=== PATIENT | female | born 1975 | race Caucasian/White ===

== ENCOUNTER → 2021-12-23 | Outpatient (CLI) | payer OTHER, SELFPAY ==
[2021-12-23 15:49] LABS: Absolute Lymphocyte Count 1.02 X10^3/uL (0.83-4.51); Absolute Neutrophil Count 3.6 X10^3/uL (2.0-7.7); Basophil# 0.04 X10^3/uL; Basophil% 0.7 % (0-1); Eosinophil# 0.09 X10^3/uL; Eosinophils% 1.7 % (0-5); Hemoglobin 10.6 g/dL (12.0-15.0); Lymphocyte # 1.02 X10^3/ul (0.83-4.51); Mean Corp Hgb Conc 31.2 g/dL (32-36); Mean Corpuscular Hgb 26.7 pg (27.0-32.0); Mean Corpuscular Volume 85.6 fL (81-99); Mean Platelet Vol. 10.3 fl (6.2-12.0); Monocyte# 0.57 X10^3/uL; Monocyte% 10.6 % (0-10); NRBC Flagged by Analyzer 0 % (0-5); Neutrophil # 3.62 X10^3/uL (2.7-7.7); Neutrophil % 67.6 % (47-70); Platelet Count 395 K/mm3 (150-450); RBC Distribution Width CV 14.9 % (11.6-14.6); Red Blood Count 3.97 M/mm3 (4.2-5.4); White Blood Count 5.4 K/mm3 (4.4-11.0)
[2021-12-26 16:19] LABS: HPV APTIMA, High Risk Negative (Negative)
== END | disposition home or self-care (01) ==
PROVIDERS: Referring Provider Obstetrics & Gynecology; Visit Provider Obstetrics & Gynecology
DX: Z12.4 Encounter for screening for malignant neoplasm of cervix (principal)
CPT/HCPCS: 36415; 84443; 85025; 87624; 88175; G0145

== ENCOUNTER → 2021-12-26 | Outpatient (CLI) | payer OTHER, SELFPAY ==
[2021-12-26 09:20] LABS: Ferritin 6 ng/mL (8-252); Iron 34 ug/dL (50-170); Iron Binding Capacity,Total 467 ug/dL (250-450); PERCENT IRON SATURATION 7.3 % (15.0-55.0)
== END | disposition home or self-care (01) ==
LOC: PAVLAB 08:17
PROVIDERS: Referring Provider Obstetrics & Gynecology; Visit Provider Obstetrics & Gynecology
DX: D64.9 Anemia, unspecified (principal); N93.9 Abnormal uterine and vaginal bleeding, unspecified; D25.9 Leiomyoma of uterus, unspecified
CPT/HCPCS: 36415; 82728; 83540; 83550

== ENCOUNTER → 2021-12-31 | Outpatient (CLI) | payer OTHER, SELFPAY ==
--- NOTE | 2021-12-31 12:11 | US_ITS ---
INDICATION: abnormal uterine bleeding EXAMINATION: Ultrasound US Pelvis Non OB Complete With Transvaginal Imaging TECHNIQUE: Transabdominal and transvaginal pelvic ultrasound was performed. Grayscale, spectral waveform, and color flow Doppler evaluation of the adnexa. COMPARISON: None. FINDINGS: UTERUS: Anteverted uterus demonstrates unremarkable echogenicity except for a focal ill-defined hypoechoic area with scattered areas of hyperechoic echogenicity visualized in the posterior aspect of the fundus indenting on the endometrium, this area measures 2.8 x 2.9 x 1.9 cm most likely representing a uterine fibroid. The endometrial stripe is prominent in size measuring 1.1 cm. No evidence of endometrial masses or cysts. No evidence of endometrial fluid is visualized. The uterus measures 10.7 x 6.3 x 5.7 cm. RIGHT OVARY: The right ovary demonstrates unremarkable echogenicity and unremarkable vascularity. A hyperechoic cyst is visualized within the right ovary measuring 1.8 x 1.4 x 1.5 cm, no significant vascularity visualized, no evidence of internal septations visualized findings suggestive of a simple unilocular physiologic cyst. The right ovary measures 3.2 x 3.3 x 2.7 cm. LEFT OVARY: The left ovary demonstrates unremarkable echogenicity and unremarkable vascularity. A hypoechoic cyst is visualized within the left ovary that demonstrates subtle scattered areas of heterogeneous echogenicity within it measuring 4.3 x 4.5 x 3.1 cm, no significant vascularity visualized, no evidence of internal septations visualized findings suggestive of a hemorrhagic cyst or a chocolate cyst. The left ovary measures 5.6 x 3.6 x 5.5 cm. FREE FLUID: None. US/Transvaginal Non- IMPRESSION: 2.9 cm posterior fundal myometrial fibroid visualized in the uterus. 4.5 cm cyst visualized in the left ovary suggestive of a hemorrhagic cyst or atypical or cyst. 1.8 cm unilocular physiologic cyst visualized in the right ovary. Electronically Signed: Issa Matos MD at 16:01 EDT ,
--- NOTE | 2021-12-31 12:11 | US_ITS ---
INDICATION: abnormal uterine bleeding EXAMINATION: Ultrasound US Pelvis Non OB Complete With Transvaginal Imaging TECHNIQUE: Transabdominal and transvaginal pelvic ultrasound was performed. Grayscale, spectral waveform, and color flow Doppler evaluation of the adnexa. COMPARISON: None. FINDINGS: UTERUS: Anteverted uterus demonstrates unremarkable echogenicity except for a focal ill-defined hypoechoic area with scattered areas of hyperechoic echogenicity visualized in the posterior aspect of the fundus indenting on the endometrium, this area measures 2.8 x 2.9 x 1.9 cm most likely representing a uterine fibroid. The endometrial stripe is prominent in size measuring 1.1 cm. No evidence of endometrial masses or cysts. No evidence of endometrial fluid is visualized. The uterus measures 10.7 x 6.3 x 5.7 cm. RIGHT OVARY: The right ovary demonstrates unremarkable echogenicity and unremarkable vascularity. A hyperechoic cyst is visualized within the right ovary measuring 1.8 x 1.4 x 1.5 cm, no significant vascularity visualized, no evidence of internal septations visualized findings suggestive of a simple unilocular physiologic cyst. The right ovary measures 3.2 x 3.3 x 2.7 cm. LEFT OVARY: The left ovary demonstrates unremarkable echogenicity and unremarkable vascularity. A hypoechoic cyst is visualized within the left ovary that demonstrates subtle scattered areas of heterogeneous echogenicity within it measuring 4.3 x 4.5 x 3.1 cm, no significant vascularity visualized, no evidence of internal septations visualized findings suggestive of a hemorrhagic cyst or a chocolate cyst. The left ovary measures 5.6 x 3.6 x 5.5 cm. FREE FLUID: None. US/Pelvic (Non ) IMPRESSION: 2.9 cm posterior fundal myometrial fibroid visualized in the uterus. 4.5 cm cyst visualized in the left ovary suggestive of a hemorrhagic cyst or atypical or cyst. 1.8 cm unilocular physiologic cyst visualized in the right ovary. Electronically Signed: Issa Matos MD at 16:01 EDT ,
== END | disposition home or self-care (01) ==
LOC: OPUS 12:09
PROVIDERS: Visit Provider Obstetrics & Gynecology
DX: N93.9 Abnormal uterine and vaginal bleeding, unspecified (principal); D25.9 Leiomyoma of uterus, unspecified; N83.201 Unspecified ovarian cyst, right side; N83.202 Unspecified ovarian cyst, left side
CPT/HCPCS: 76830; 76856; 93976

== ENCOUNTER 2022-01-13 07:07 | Day surgery (SDC) | payer OTHER, SELFPAY ==
--- NOTE | 2022-01-12 16:53 | HP.PCM_ITS ---
History and Physical MR#: [id number] Acct: [id number] Name:? JERRICA COHEN Rep #: [id number] : 1975 ? ? Provider: Dr. Janessa Zapata MD Age/Sex:? 46/F ? ? [place] [facility] [place]: Signed Intake Vital Signs ? 01/08/2213:27 01/08/2213:28 Height 5 ft 2.5 in 5 ft 2.5 in Weight: 154 lb ? BMI 27.7 ? BP 106/64 ? Intake Visit Reasons:?D&C symphion poss. 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 Anemia Restless legs Wears glasses Surgical History? History of appendectomy Hx of tonsillectomy Family History? Father Colon cancerGrandmother Lung cancerGrandmother Pancreatic cancer Social History? Smoking Status:? Never smoker substance use type:? does not use caffeine:? Yes seatbelt use:? always do you feel safe at home:? Yes additional social history:? [employer] Patient works at [employer] D&C symphion poss. ablation Details: JERRICA COHEN is a 46 year old who presents for preop for surgery for AUB due to submucosal fibroid. posterior aspect of the fundus indenting on the endometrium, this area measures 2.8 x 2.9 x 1.9 cm most likely representing a uterine fibroid. Female Reproductive History Menopausal Symptoms: No hot flashes, No night sweats, No difficulty concentrating and No change in libido Pregancy History ? ? ? 3 ? Elective abortions ? Hx Para ? ? ? 2 ? Spontaneous abortions ? ? ? 1 Hx # Term Pregnancies ? Ectopic pregnancies ? Hx # Pregnancies ? Multiple births ? # of living children ? ? ? 2 Past Pregnancies Del. Date Name GA/Weeks Outcome Route Bth Weight Infant Gen Labor Lgth Anesthesia Del Locatn Provider FOB Unknown 2000 Ciera ? live - full term ? Unknown 2003 Jack ? live - full term ? ROS Const Constitutional: Reports as per HPI; Denies fatigue, increased appetite, poor appetite, night sweats, weight gain or weight loss Cardio Card: Denies chest pain Resp Resp: Denies cough or dyspnea GI GI: Reports as per HPI; Denies abdominal pain, bloating, constipation, nausea or vomiting : Reports as per HPI and other; Denies difficulty voiding, dysuria, hematuria, hot flashes, nipple discharge, pelvic pain, prolapse symptoms, urinary frequency, urinary incontinence, urinary urgency, vaginal discharge, vaginal dryness, vaginal odor or vaginal pruritus Skin Skin/Breast: Denies changing lesions, breast mass, breast pain, breast skin changes or nipple discharge Psych Psych: Denies anxiety, change in libido, depression or difficulty concentrating Exam Const General: cooperative, healthy appearing, comfortable, no acute distress, well developed and well groomed [facility] Head: normal to inspection and normocephalic Ears: hearing grossly normal bilaterally and external ears normal Nose: external nose normal Face and sinus: normal facial exam Neck Neck: normal visual inspection, full ROM and no lymphadenopathy Thyroid: thyroid normal Chest Chest palpation & inspection: normal inspection of the chest Breast inspection: normal inspection of the breasts and normal inspection of the axillae Breast palpation: normal palpation of the breasts, normal palpation of the axillae and no axillary lymphadenopathy Resp Effort & Inspection: normal respiratory effort GI Inspection: normal to inspection and non-distended Palpation: soft, no hepatosplenomegaly and no guarding General: bladder normal to palpation External Female Exam: normal external appearance, normal appearance of the urethra and no lesions Urethra: normal appearance of the urethra and normal palpation Speculum Exam - Vagina: normal appearance of the vagina and normal vaginal discharge Speculum Exam - Cervix: normal appearance of the cervix, no cervical discharge, no lesions and nontender Bimanual Exam- Vagina & Uterus: normal bimanual exam, uterine size normal, bladder normal to palpation, No tender, uterine mobility normal, consistency normal, non-tender and no cervical motion tenderness Bimanual Exam- Adnexa, other: normal adnexae, no masses and non-tender Skin General: no rashes or lesions noted Neuro General: patient alert, moves all extremities and no focal motor deficits Extrem General: normal to inspection and no pedal edema Psych Appearance: grossly normal Mental Status: mental status grossly normal Affect: normal affect Speech and Movement: speech and movement normal Attitude: cooperative Coding Level of Care Code No Charge Diagnoses Abnormal uterine bleeding due to leiomyoma of uterus? N93.9; D25.9 Mild anemia? D64.9 Iron deficiency anemia? D50.9 Ovarian cyst? N83.209 Assessment and Plan Assessment and Plan (1) Abnormal uterine bleeding due to leiomyoma of uterus: ?Status:?Acute ?Comment: d and c hysteoroscopy symphion or sidney ablation.? labs and fu us ordered (2) Mild anemia: ?Status:?Acute ?Comment: OTC supplement (3) Iron deficiency anemia: ?Status:?Acute ?Comment: recommend Fe supplement 1 daily. (4) Ovarian cyst: ?Status:?Acute ?Comment: 4 cm likely hemorrhagic Plan After discussing the patient's diagnosis and treatment plan options, patient wishes to proceed with surgical management.? I have discussed with the patient the risks, benefits, and alternatives of the procedure which include but are not limited to risks of anesthesia, bleeding, infection, possible damage to bowel, bladder, or surrounding vasculature which could lead to additional surgery to evaluate any complications.? Patient agrees to procedure and wishes to proceed.? ACOG/uptodate references given for additional information regarding procedure.? UPDATE- I have seen the patient and performed any clinically relevant updates to the history and physical exam. Janessa Zapata MD
[2022-01-13] VITALS (7 sets, daily range): BP systolic 92–117; BP diastolic 58–74; PULSE 58–75; RESP 16; TEMP 35.9–36.8; O2SAT 99–100; BMI 27.8
[2022-01-13] MEDS: Lidocaine 1% (5 ml sdv) 5 ML Vial (07:55)
[2022-01-13] MEDS: Lactated Ringers 1,000 ML 15 ML IV (08:05)
[2022-01-13 08:09] LABS: Absolute Lymphocyte Count 1.01 X10^3/uL (0.83-4.51); Absolute Neutrophil Count 3.1 X10^3/uL (2.0-7.7); Basophil# 0.02 X10^3/uL; Basophil% 0.4 % (0-1); Eosinophil# 0.13 X10^3/uL; Eosinophils% 2.8 % (0-5); Hemoglobin 11.3 g/dL (12.0-15.0); Lymphocyte # 1.01 X10^3/ul (0.83-4.51); Lymphocyte % 21.9 % (19-41); Mean Corp Hgb Conc 31.4 g/dL (32-36); Mean Corpuscular Hgb 27.2 pg (27.0-32.0); Mean Corpuscular Volume 86.7 fL (81-99); Mean Platelet Vol. 10.3 fl (6.2-12.0); Monocyte# 0.35 X10^3/uL; Monocyte% 7.6 % (0-10); NRBC Flagged by Analyzer 0 % (0-5); Neutrophil % 67.1 % (47-70); Platelet Count 369 K/mm3 (150-450); RBC Distribution Width CV 15.5 % (11.6-14.6); RBC Distribution Width SD 48.5 fl (35.1-43.9); Red Blood Count 4.15 M/mm3 (4.2-5.4); White Blood Count 4.6 K/mm3 (4.4-11.0)
[2022-01-13 08:13] LABS: Internal QC Validated? YES +Cl - CLEAR BKGD; Pregnancy, Urine Negative Negative
--- NOTE | 2022-01-13 08:30 | EMB_PTH ---
PATIENT: JERRICA COHEN LOC: [facility] [place] U#:[id number] AGE/SX: 46/F ROOM: RE01/13/[address]: Dr. Janessa Zapata MD : 1975 BED: DIS: 01/13/2022 SPEC #: [id number] RECD: 01/13/22 10:08 STATUS: GABE JAVIER #: [id number] AKILAH: 01/13/22 08:[address]: Janessa Zapata DEPT: SURGICAL PATHOLOGY RECD BY: Elsie Rios Tissues: Endometrium, NOS Procedures: Surgery Specimen Level IV HEADER OPERATION: Hysteroscopy, D&C symphion, Shelley ablation PRE-OP DIAGNOSIS: Abnormal uterine bleeding leiomyoma, anemia, ovarian cyst TISSUE SUBMITTED: Endometrial currettings MICROSCOPIC DIAGNOSIS Endometrial curetting: Secretory endometrium with focal glandular breakdown. SJ 01/14/22 MICROSCOPIC DESCRIPTION Slides are reviewed. GROSS DESCRIPTION Received in formalin is one container labeled with the patient name and designated endometrial currettings. The specimen consists of multiple fragments of hemorrhagic soft tissue measuring in aggregate 5 x 3 x 0.3 cm. The specimen is totally submitted in two cassettes. / SJ:kaelyn 01/12/22 TC:5 CPT:41176
--- NOTE | 2022-01-13 08:30 | OP.PCM_ITS ---
Problems Associated Problem List Diagnoses (1) Abnormal uterine bleeding due to leiomyoma of uterus: (2) Iron deficiency anemia: Report of Operation Pre-Operative Diagnosis: see problem list Post-Operative Diagnosis: same Surgery/Procedure Performed:: d and c hysteroscopy shelley ablation Description of Surgical Findings:: nl uterine cavity thickened lining no endometrial fibroid seen hoop maker machine: None Type of Anesthesia: Local MAC Special Medications: none Specimen's removed: emc Drains: none Estimated Blood Loss (mL): 50 Fluids Replaced: crystalloid Description of Procedure: Patient was prepped and draped in a normal sterile fashion under MAC anesthesia. A weighted speculum was placed in the vagina and the anterior lip of the cervix was grasped with a single-tooth tenaculum. A paracervical block was placed with 1% lidocaine. Cervix was progressively dilated to allow passage of a 5 mm hysteroscope. The lining was fully visualized and noted to have a second appearance but no endometrial fibroids visualized. Uterine sounded to 10 cm. Curettage was performed and significant amount of tissue was removed, sent to pathology. Again hysteroscope was entered and the lining visualized and still no endometrial fibroid was noted therefore the decision to proceed with a Shelley ablation was made. The Shelley device was opened and the cavity length was found to be 6 cm. Device was inserted into the uterus and balloon inflated and device deployed. Integrity of the cavity was confirmed and a 2 minute treatment cycle was completed without complication. All instruments were r emoved from the vagina and excellent hemostasis was noted. Patient was awoken and taken to recovery in stable condition. Grafts/Implants Used: none Complications none Admit VTE Documentation VTE Present on Admission: No VTE Mechan Device Prophylaxis: SCD's Multi Select Codes Urinary/Genital Urinary/Genital CPT Codes: 35583 Shelley/Novasure
--- NOTE | 2022-01-13 08:32 | DCINST_ITS ---
Discharge Instructions Procedure D&C Diet Discharge Diet: No restrictions Activity Discharge Activity: Return to Normal Activity, May Shower and May Take a Tub Bath (after 1 week) May resume sexual activity in: 1-2 weeks Weight Bearing Status: Weight bearing as tolerated Lifting Restrictions: none Dressing / Incision Call your doctor if you observe: Fever of 101 or Higher, Using more than 1 pad per hour, Shortness of breath and Uncontrolled pain Follow Up Care Please Follow Up With: Janessa Zapata MD When: Call [phone] to schedule appointment. Test Results: Test results from this visit will be discussed in further detail at your follow- up appointment, if applicable. Discharge Plan Admission Primary Reason for Your Visit: d and c sidney ablation Attending Provider: Janessa Zapata Primary Care Provider: MARCELO RAINES Discharge Orders/Prescriptions Prescriptions: New naproxen [naproxen] 500 mg tablet 500 mg PO BID PRN PRN (Reason: Pain) Qty: 30 1RF Continued ferrous sulfate 325 mg (65 mg iron) tablet 325 mg PO DAILY Referrals / Follow Up: MARCELO RAINES [Other] Disposition Disposition (needs filled in before D/C Order can be placed): Home, Self Care
== END 2022-01-13 10:02 | disposition home or self-care (01) ==
LOC: SDC 07:11 → AC 07:12
PROVIDERS: Referring Provider Obstetrics & Gynecology; Visit Provider Obstetrics & Gynecology
PROC: 0UB98ZZ Excision of Uterus, Via Natural or Artificial Opening Endoscopic (ICD-10-PCS; CPT 58558; principal; 2022-01-13 08:15)
DX: D25.0 Submucous leiomyoma of uterus (principal); N93.9 Abnormal uterine and vaginal bleeding, unspecified; D50.9 Iron deficiency anemia, unspecified; N83.209 Unspecified ovarian cyst, unspecified side
CPT/HCPCS: 58563; 00952; 81025; 85025; 86850; 86900; 86901; 88305; J7120; J2405

== ENCOUNTER → 2022-03-10 | Outpatient (CLI) | payer OTHER, SELFPAY ==
--- NOTE | 2022-03-10 08:38 | BI_ITS ---
MAMMOGRAPHY - BILATERAL SCREENING REASON FOR EXAM: Female, 46 years old. Routine annual screening examination. PERTINENT HISTORY: Non-contributory. TECHNIQUE: Digital bilateral breast arturo (3D mammographic acquisition) in the CC and MLO projections. 2-D mediolateral oblique (MLO) and craniocaudad (CC) views of both breasts were obtained. CAD: Full Field Digital Mammography with Computer Added Detection was performed. COMPARISON: Comparison is made with prior outside examination dated 06/17/2018. FINDINGS: Breast Composition: The breasts are heterogeneously dense, which may obscure small masses. There are no dominant masses or suspicious calcifications. Stable small benign-appearing bilateral axillary lymph nodes. No other significant abnormalities are identified. There has been no significant change since the prior study. BI/SCRN MAMM (CAD)W/ARTURO BILAT IMPRESSION: Stable bilateral screening mammogram. Yearly follow-up mammogram recommended. (A) ASSESSMENT CATEGORY: BIRADS Category 2: Benign. A letter regarding these results will be sent to the patient by the facility within 30 days. Approximately 10% of breast cancers are not detected by mammography. A normal mammogram should not delay biopsy of a clinically suspicious abnormality. [id number] Electronically Signed: Torito Barboza MD at 12:29 EDT ,
--- NOTE | 2022-03-10 08:38 | US_ITS ---
HISTORY: ovarian cyst. TECHNIQUE: Transabdominal and transvaginal pelvic ultrasound was performed with lindsay scale and color Doppler evaluation. 54 and 47 images. COMPARISON: 12/31/2021. FINDINGS: UTERUS: 9.6 x 5.3 x 6.2 cm. Heterogeneous 2.1 x 2.2 x 2.3 cm lesion with shadowing, likely calcification. ENDOMETRIAL THICKNESS: 7 mm. RIGHT OVARY: 2.4 x 1.7 x 3.2 cm. 1.6 cm dominant follicle. LEFT OVARY: 5.3 x 4.3 x 5 cm. 3.6 x 4.3 x 4.5 cm cystic lesion with low level internal echoes, previously 2.5 x 3.9 x 4.4 cm. FREE FLUID: None. US/Transvaginal Non- IMPRESSION: 4.5 cm hemorrhagic left ovarian cyst, measuring slightly larger compared to prior. 2.3 cm uterine leiomyoma. Electronically Signed: Mikala Neff MD at 9:18 EDT ,
--- NOTE | 2022-03-10 08:38 | US_ITS ---
HISTORY: ovarian cyst. TECHNIQUE: Transabdominal and transvaginal pelvic ultrasound was performed with lindsay scale and color Doppler evaluation. 54 and 47 images. COMPARISON: 12/31/2021. FINDINGS: UTERUS: 9.6 x 5.3 x 6.2 cm. Heterogeneous 2.1 x 2.2 x 2.3 cm lesion with shadowing, likely calcification. ENDOMETRIAL THICKNESS: 7 mm. RIGHT OVARY: 2.4 x 1.7 x 3.2 cm. 1.6 cm dominant follicle. LEFT OVARY: 5.3 x 4.3 x 5 cm. 3.6 x 4.3 x 4.5 cm cystic lesion with low level internal echoes, previously 2.5 x 3.9 x 4.4 cm. FREE FLUID: None. US/Pelvic (Non ) IMPRESSION: 4.5 cm hemorrhagic left ovarian cyst, measuring slightly larger compared to prior. 2.3 cm uterine leiomyoma. Electronically Signed: Mikala Neff MD at 9:18 EDT ,
[2022-03-10 10:17] LABS: Absolute Lymphocyte Count 0.86 X10^3/uL (0.83-4.51); Absolute Neutrophil Count 3.5 X10^3/uL (2.0-7.7); Basophil# 0.03 X10^3/uL; Basophil% 0.6 % (0-1); Eosinophil# 0.09 X10^3/uL; Eosinophils% 1.8 % (0-5); Hemoglobin 12.7 g/dL (12.0-15.0); Lymphocyte # 0.86 X10^3/ul (0.83-4.51); Lymphocyte % 17.4 % (19-41); Mean Corp Hgb Conc 32.6 g/dL (32-36); Mean Corpuscular Hgb 29.2 pg (27.0-32.0); Mean Corpuscular Volume 89.7 fL (81-99); Monocyte# 0.46 X10^3/uL; Monocyte% 9.3 % (0-10); NRBC Flagged by Analyzer 0 % (0-5); Neutrophil # 3.48 X10^3/uL (2.7-7.7); Neutrophil % 70.7 % (47-70); Platelet Count 367 K/mm3 (150-450); RBC Distribution Width CV 14.8 % (11.6-14.6); Red Blood Count 4.35 M/mm3 (4.2-5.4); White Blood Count 4.9 K/mm3 (4.4-11.0)
== END | disposition home or self-care (01) ==
PROVIDERS: Referring Provider Obstetrics & Gynecology; Visit Provider Obstetrics & Gynecology
DX: Z12.31 Encounter for screening mammogram for malignant neoplasm of breast (principal); N83.202 Unspecified ovarian cyst, left side; D64.9 Anemia, unspecified
CPT/HCPCS: 36415; 76830; 76856; 77063; 77067; 85025

== ENCOUNTER → 2023-04-13 | Outpatient (CLI) | payer OTHER, SELFPAY ==
--- NOTE | 2023-04-13 12:01 | BI_ITS ---
MAMMOGRAPHY - BILATERAL SCREENING REASON FOR EXAM: Female, 47 years old. Routine annual screening examination. PERTINENT HISTORY: Non-contributory. TECHNIQUE: Digital bilateral breast arturo (3D mammographic acquisition) in the CC and MLO projections. 2-D mediolateral oblique (MLO) and craniocaudad (CC) views of both breasts were obtained. CAD: Full Field Digital Mammography with Computer Added Detection was performed. COMPARISON: Comparison is made with prior study dated March 10, 2022. FINDINGS: Breast Composition: The breasts are heterogeneously dense, which may obscure small masses. There are no dominant masses or suspicious calcifications. Stable small benign-appearing bilateral axillary lymph nodes. No other significant abnormalities are identified. There has been no significant change since the prior study. BI/SCRN MAMM (CAD)W/ARTURO BILAT IMPRESSION: Stable bilateral screening mammogram. Yearly follow-up mammogram recommended. (A) ASSESSMENT CATEGORY: BIRADS Category 2: Benign. A letter regarding these results will be sent to the patient by the facility within 30 days. Approximately 10% of breast cancers are not detected by mammography. A normal mammogram should not delay biopsy of a clinically suspicious abnormality. [id number] Electronically Signed: Torito Barboza MD at 12:46 EST ,
== END | disposition home or self-care (01) ==
LOC: OPBI 12:01
PROVIDERS: PCP Physician Assistant; Referring Provider Nurse Practitioner Women's Health; Visit Provider Nurse Practitioner Women's Health
DX: Z12.31 Encounter for screening mammogram for malignant neoplasm of breast (principal)
CPT/HCPCS: 77063; 77067

== ENCOUNTER → 2023-11-04 | Outpatient (CLI) | payer OTHER, SELFPAY ==
[2023-11-04 12:23] LABS: Absolute Lymphocyte Count 1.02 X10^3/uL (0.83-4.51); Absolute Neutrophil Count 2.9 X10^3/uL (2.0-7.7); Basophil# 0.04 X10^3/uL; Basophil% 0.9 % (0-1); Eosinophil# 0.13 X10^3/uL; Eosinophils% 2.9 % (0-5); Hematocrit 40.5 % (37-47); Hemoglobin 13.4 g/dL (12.0-15.0); Lymphocyte # 1.02 X10^3/ul (0.83-4.51); Lymphocyte % 22.9 % (19-41); Mean Corp Hgb Conc 33.1 g/dL (32-36); Mean Corpuscular Hgb 30.3 pg (27.0-32.0); Mean Corpuscular Volume 91.6 fL (81-99); Mean Platelet Vol. 11.2 fl (6.2-12.0); NRBC Flagged by Analyzer 0 % (0-5); Neutrophil # 2.86 X10^3/uL (2.7-7.7); Neutrophil % 64.1 % (47-70); Platelet Count 339 K/mm3 (150-450); RBC Distribution Width CV 12.4 % (11.6-14.6); RBC Distribution Width SD 41.2 fl (35.1-43.9); Red Blood Count 4.42 M/mm3 (4.2-5.4); White Blood Count 4.5 K/mm3 (4.4-11.0)
[2023-11-04 13:01] LABS: Vitamin D,25 Hydroxy 27.1 ng/mL
[2023-11-04 13:27] LABS: AST(SGOT) 14 U/L (15-37); Alanine Aminotransfer ALT/SGPT 17 U/L (13-56); Albumin, Serum 3.9 g/dL (3.2-5.0); Alkaline Phosphatase 61 U/L (45-117); Anion Gap 5 (5-15); BUN 11 mg/dL (7-18); BUN/Creat Ratio 13.5 RATIO (10-20); Chloride 108 mmol/L (98-107); Cholesterol 225 mg/dL (200); Creatinine, Serum 0.82 mg/dL (0.55-1.02); EST Glomerular Filtration Rate 80 mL/min (>60); Est Glom Filt Rate - Afr Amer 97 mL/min (>60); Ferritin 34 ng/mL (8-252); Glucose 97 mg/dL (74-106); High Density Lipoprotein 94 mg/dL; Iron 112 ug/dL (50-170); Iron Binding Capacity,Total 359 ug/dL (250-450); PERCENT IRON SATURATION 31.2 % (15.0-55.0); Protein, Total 7.9 g/dL (6.4-8.2); Sodium Level 137 mmol/L (136-145); Thyroid Stim Hormone (TSH) 1.62 uIU/mL (0.358-3.74); Triglycerides 81 mg/dL; Very Low Density Lipoprotein 16 mg/dL (5-40)
== END | disposition home or self-care (01) ==
LOC: MTLAB 10:00
PROVIDERS: PCP Family Medicine; Referring Provider Family Medicine; Visit Provider Family Medicine
DX: Z13.220 Encounter for screening for lipoid disorders (principal); Z86.2 Personal history of diseases of the blood and blood-forming organs and certain disorders involving the immune mechanism
CPT/HCPCS: 36415; 80053; 80061; 82306; 82728; 83540; 83550; 84443; 85025

== ENCOUNTER → 2024-03-13 | Outpatient (CLI) | payer OTHER, SELFPAY ==
--- NOTE | 2024-03-13 16:44 | CT_ITS ---
STUDY: CT ABDOMEN WITH CONTRAST REASON FOR EXAM: Female, 48 years old. hepatitic cyst, and renal mass, left side RADIATION DOSAGE (If Supplied By Facility): CTDIvol = ( 8.33 ) mGy, DLP = ( 471.02 ) mGycm TECHNIQUE: Transaxial images were obtained post I.V. administration of IV 100mL Isovue-370, and oral contrast. Sagittal and coronal images were reconstructed. Individualized dose optimization techniques were used for this CT. COMPARISON: None. FINDINGS: The visualized lung bases are unremarkable. The visualized portions of the heart are within normal limits. 3.5 cm mass of decreased attenuation with peripheral globular enhancement within the posterior segment right lobe of the liver consistent with a hemangioma. Normal gallbladder and extrahepatic biliary system. Normal spleen. Normal pancreas. Normal bilateral adrenal glands. 2 cm cyst in the midsection of right kidney. 2 cm oval mass containing fat within the midsection left kidney consistent with an angiomyolipoma. Normal visualized stomach. Normal small intestine. Normal colon. There are surgical clips in the region of the appendix consistent with a prior appendectomy. Normal abdominal aorta. Normal inferior vena cava. Normal retroperitoneum. There is a right-sided inguinal hernia containing adipose tissue. Normal osseous structures. CT/Abdomen WITH IV Contrast IMPRESSION: CT confirms a 3.5 cm hemangioma in the posterior segment right lobe of the liver. 2 cm cyst midsection right kidney. 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 Electronically Signed: Zurdo Walters MD at 13:07 EDT ,
== END | disposition home or self-care (01) ==
LOC: CT 16:43
PROVIDERS: PCP Family Medicine; Referring Provider Family Medicine; Visit Provider Family Medicine
DX: K76.89 Other specified diseases of liver (principal); N28.89 Other specified disorders of kidney and ureter
CPT/HCPCS: 74160; Q9967

== ENCOUNTER → 2024-08-31 | Outpatient (CLI) | payer OTHER, SELFPAY ==
--- NOTE | 2024-08-31 12:29 | BI_ITS ---
EXAM: SCRN MAMM (CAD)W/ARTURO BILAT DATE: 08/31/2024 CLINICAL HISTORY: F, Age 48 y/o , SCREENING MAMMOGRAM No family history. BREAST CANCER RISK ASSESSMENT: Not assessed TECHNIQUE: Bilateral screening digital breast tomosynthesis with 2D and 3D images. Computer aided detection. COMPARISON: Prior exam(s) dated prior study dated April 13, 2023.. FINDINGS: TISSUE DENSITY: The breast tissue is heterogenously dense, which may obscure small masses. Bilateral Breast Mammographic Findings: No significant masses, calcifications or other abnormalities are identified. No suspicious masses, areas of developing architectural distortion, or suspicious calcifications. There has been no significant interval change. BI/SCRN MAMM (CAD)W/ARTURO BILAT IMPRESSION: Right Breast: BIRADS 1 NEGATIVE. Left Breast: BIRADS 1 NEGATIVE. OVERALL FINAL ASSESSMENT: BIRADS 1 NEGATIVE RECOMMENDATION: Routine annual follow-up in 1 Year A letter with findings and recommendations will be mailed to the patient. Reading Location: [place] [address]
== END | disposition home or self-care (01) ==
PROVIDERS: PCP Family Medicine; Referring Provider Obstetrics & Gynecology; Visit Provider Obstetrics & Gynecology
DX: Z12.31 Encounter for screening mammogram for malignant neoplasm of breast (principal)
CPT/HCPCS: 77063; 77067

== ENCOUNTER → 2024-11-06 | Outpatient (CLI) | payer OTHER, SELFPAY ==
[2024-11-08 13:08] LABS: Vitamin D 1,25-Dihydroxy 31.6 pg/mL (24.8-81.5)
== END | disposition home or self-care (01) ==
LOC: MFPLAB 10:05
PROVIDERS: PCP Family Medicine; Referring Provider Family Medicine; Visit Provider Family Medicine
DX: E55.9 Vitamin D deficiency, unspecified (principal)
CPT/HCPCS: 36415; 82652